=== PATIENT | male | born 1965 | race Caucasian/White ===

== ENCOUNTER 2018-09-12 22:06 | Emergency (ER) | payer SELFPAY ==
[2018-09-13] MEDS: IBUPROFEN 600 MG TAB PO (02:02)
== END 2018-09-13 05:16 | disposition home or self-care (01) ==
LOC: FTE 22:06
DX: S43.101A Unspecified dislocation of right acromioclavicular joint, initial encounter (principal); F17.210 Nicotine dependence, cigarettes, uncomplicated; R07.9 Chest pain, unspecified; V18.4XXA Pedal cycle driver injured in noncollision transport accident in traffic accident, initial encounter
CPT/HCPCS: 71045; 71100; 73050; 93005; 99284-25

== ENCOUNTER 2018-09-29 20:15 | Emergency (ER) | payer SELFPAY, OTHER ==
[2018-09-29] MEDS: IBUPROFEN 800 MG TAB PO (21:32)
[2018-09-29] MEDS: AZITHROMYCIN 250 MG TAB PO (21:33)
[2018-09-29] MEDS: ONDANSETRON (ODT) 4 MG TAB ODT (21:33)
[2018-09-29 21:53] LABS: URINE BLOOD (Dip) POC Negative (NEGATIVE); URINE GLUCOSE (Dip) POC Negative (NEGATIVE); URINE KETONES (Dip) POC Trace (NEGATIVE); URINE LEUKOCYTE EST (Dip) POC Negative (NEGATIVE); URINE NITRITE (Dip) POC Negative (NEGATIVE); URINE TOTAL PROTEIN POC 2+ (NEGATIVE)
[2018-09-29 21:53] LABS: URINE PH (Dip) POC 6.5 (5.0-8.5)
[2018-09-29] MEDS: CEFTRIAXONE 250 MG INJ IM (22:13)
[2018-09-29] MEDS: LIDOCAINE 1% (MPF) 5 ML VIAL INJ (22:14)
== END 2018-09-30 | disposition home or self-care (01) ==
LOC: E/R 09-30
DX: N43.3 Hydrocele, unspecified (principal); Z87.891 Personal history of nicotine dependence
CPT/HCPCS: 76870; 81003; 96372; 99285-25

== ENCOUNTER 2019-05-31 05:35 | Emergency (ER) | payer OTHER ==
[2019-05-31] MEDS: ONDANSETRON 4 MG INJ IV (07:36)
[2019-05-31] MEDS: morphine 4 MG/ML VIAL IV (07:37)
[2019-05-31] MEDS: SOD CHLORIDE 0.9% 1,000 ML IV (07:37)
[2019-05-31] MEDS ORDERED: KETOROLAC 30 MG INJ IM (07:59)
[2019-05-31] MEDS: KETOROLAC 30 MG INJ IV (08:06)
== END 2019-05-31 10:16 | disposition home or self-care (01) ==
LOC: FTE 10:16
DX: K80.20 Calculus of gallbladder without cholecystitis without obstruction (principal); F17.210 Nicotine dependence, cigarettes, uncomplicated; R10.11 Right upper quadrant pain
CPT/HCPCS: 71045; 76705; 80053; 80307; 81003; 83690; 84484; 85025; 85610; 85730; 93005; 96361; 96374; 96375; 99285-25